=== PATIENT | female | born 1940 | race Caucasian/White ===

== ENCOUNTER 2017-10-07 15:06 | Inpatient (IN) ==
[2017-10-07] MEDS ORDERED: Naloxone 0.4 MG/ML INJ IVP PRN (21:48)
[2017-10-07] MEDS ORDERED: traMADol 50 MG TABLET PO PRN (21:51)
--- NOTE | 2017-10-07 22:36 | Internal Med History&Physical ---
Date of Encounter: 10/07/17 Time of Encounter: 22:33 Assessment and Plan (1) Lung mass Current visit: No Status: Acute 77/female Transfer from [facility]. Noted that chest x-ray was suggestive of of lung mass. CT chest: Right upper lobe lung mass 3.4 x 2.9x2.7 cm Patient is ex-smoker. Plan: Admit as inpatient. Nothing by mouth from midnight. We will get PT/INR tomorrow. Warfarin on hold. I Texted Dr Toure regarding this admission (2) UTI (urinary tract infection) Current visit: No Status: Acute Urine analysis is suggestive of a urinary tract infection. Presently on ceftriaxone 1 g every 24 hours. await for culture Qualifiers: Urinary tract infection type: site unspecified Hematuria presence: with hematuria Qualified Code(s): N39.0 - Urinary tract infection, site not specified; R31.9 - Hematuria, unspecified; R31.9 - Hematuria, unspecified (3) Bullous pemphigoid Current visit: No Status: Acute Presently on steroids. At this point I will hold her steroids (4) Atrial fibrillation Current visit: No Status: Chronic Patient is known to have atrial fibrillation At this point his rate control. We will rate control: Beta piper Anticoagulation: Used to be on warfarin/presently warfarin and hold Last INR at [facility] was 1.4 yesterday Qualifiers: Atrial fibrillation type: chronic Qualified Code(s): I48.2 - Chronic atrial fibrillation (5) COPD (chronic obstructive pulmonary disease) Current visit: No Status: Chronic Presently COPD is stable. Qualifiers: COPD type: emphysema Emphysema type: unspecified Qualified Code(s): J43.9 - Emphysema, unspecified (6) Hypertension Current visit: No Status: Chronic Patient blood pressure is within acceptable range. Qualifiers: Hypertension type: essential hypertension Qualified Code(s): I10 - Essential (primary) hypertension (7) DVT prophylaxis Current visit: Yes Status: Acute Patient was previously on Coumadin. Coumadin is on hold. SCD: Medical decision making: This patient has a moderate to severe risk of worsening in spite of being on appropriate medication due to the underlying chronic comorbid condition. Internal Medicine - H&P: HPI Chief complaint: UTI/Lung Mass Admitted From: Hospital to Hospital Transfer Plans for Post Hospital Care: Home History of present illness: Ms. Mcdonald is a 77 year old female whose primary care provider is Dr. Kris Malcoml. Patient was evaluated and admitted in the emergency department at [facility]. The reason why she was evaluated in the [facility] because she had a possibility of rhabdomyolysis secondary to the prolonged sitting in a chair. Patient was evaluated in the emergency room at [facility] and noted that she has not evidence of urinary tract infection. Patient was scheduled for a x-ray which showed possibility of a lung mass. Patient underwent CT scan of the chest and that showed that there is a right- sided lung mass. In view of the right-sided lung mass, persistent UTI it was decided to transfer patient from [facility] to this hospital for further evaluation. Reason for accepting transfer: Newly diagnosed lung mass/persistent UTI: Need further investigation/management. Family history: Noncontributory. Past Med Surg Social Fam HX - Past Medical History Medical history: atrial fibrillation, CHF, COPD, coronary artery disease, GERD, hyperlipidemia, hypertension, thyroid disease Psychiatric history: anxiety - Past Surgical History Surgical History: angioplasty/stent, herniorrhaphy, hysterectomy, other - Social History Smoking Status: Former smoker Smokeless Tobacco Status: No Alcohol use: occasionally Drug use: none - Family History Mother Living Status: Hx Family Cardiac Disorders: Yes (CHF) Internal Medicine - H&P: Meds Acetaminophen w/Cod 300-30 mg [Tylenol w/Codeine #3] 2 each PO Q4HR PRN [History] Albuterol Sulfate [Proair Hfa] 2 puff IH Q4H PRN 08/03/17 [History] Budesonide/Formoterol 160/4.5 [Symbicort 160/4.5] 2 puff IH BIDR 08/03/17 [ History] Calcium Citrate/Vitamin D3 [Calcium Citrate with D Tablet] 1 each PO BID [History] Famotidine [Pepcid] 40 mg PO BID 08/03/17 [History] Levothyroxine Sodium [Levoxyl] 50 mcg PO DAILY 08/03/17 [History] Lovastatin [Mevacor] 20 mg PO HS 08/03/17 [History] Metoprolol Tartrate [Lopressor] 50 mg PO BID 08/03/17 [History] Nystatin/Triamcinolone CRM [Mycolog] 1 appl TP BID 08/03/17 [History] PredniSONE [Timothy] 3 mg PO DAILY 08/03/17 [History] Tramadol HCl [Ultram] 50 mg PO QID PRN 08/03/17 [History] Trazodone HCl 50 mg PO HS PRN 08/03/17 [History] hydrOXYzine HCl [Hydroxyzine HCl] 50 - 100 mg PO Q6H PRN 08/03/17 [History] Ammonium Lactate [Amlactin] 1 appl TP DAILY 14 Days bottle 08/06/17 [Rx] Doxycycline Hyclate 100 mg PO BID #10 tablet 08/06/17 [Rx] Lactobacillus [Culturelle] 1 each PO BID #10 cap.sprink 08/06/17 [Rx] Magnesium Oxide [Mag-Ox] 400 mg PO BID #14 tablet 08/06/17 [Rx] Potassium Chloride [Klor-Con 10] 10 meq PO BID #60 tablet.er 08/06/17 [Rx] Torsemide [Demadex] 20 mg PO DAILY #30 tablet 08/06/17 [Rx] Warfarin [Coumadin] 2.5 mg PO DAILY #0 08/06/17 [Rx] 3 Allergy/AdvReac Type Severity Reaction Status Date / Time No Known Allergies Allergy Verified 07/30/17 13:44 All Systems PM: A 10-system review of systems was performed and is negative for pertinent findings except as documented above in the HPI. - Constitutional Constitutional: no chills, no fever(s), no night sweats - EENT Eyes: no change in vision, no discharge, no pain, no photophobia Ears: no ear discharge, no ear pain, no tinnitus Nose, mouth and throat: no dysphagia, no nasal discharge, no neck pain, no sore throat - Cardiovascular Cardiovascular ROS IM: no chest pain, no diaphoresis, no dyspnea, no lightheadedness, no palpitations, no syncope - Respiratory Respiratory: no cough, no dyspnea, no wheezing, no excessive phlegm production - Gastrointestinal Gastrointestinal: no abdominal pain, no diarrhea, no hematemesis, no hematochezia, no melena, no nausea, no vomiting - Genitourinary Genitourinary: no change in urinary stream, no dysuria, no flank pain, no hematuria - Musculoskeletal Musculoskeletal ROS IM: no numbness, no tingling - Integumentary Integumentary IM: no rash, no unusual bruising - Neurological Neurological ROS: no confusion, no convulsions, no focal weakness, no numbness, no tingling, no tremor(s) - Hematologic/Lymphatic Hematologic/Lymphatic: no easy bruising - Constitutional Vitals: Temp Pulse Resp BP Pulse Ox 98.7 F 82 16 133/88 95 10/07/17 18:17 10/07/17 18:17 10/07/17 18:17 10/07/17 18:17 10/07/17 18:17 General appearance: Present: A&O X 3, pleasant, no acute distress, answers questions appropriately - Head Head exam: Present: atraumatic, normocephalic - Eye Eye exam: Present: PERRL, conjuntiva pink, sclera anicteric Pupils: Present: PERRL - Neck Neck exam general surgery: Present: supple, trachea midline. Absent: lymphadenopathy - Respiratory Respiratory exam: Present: CTAB. Absent: accessory muscle use, rales, rhonchi, wheezes - Cardiovascular Cardiovascular exam: Present: RRR, +S1, +S2. Absent: diastolic murmur, gallop, rubs, systolic murmur - GI/Abdominal GI/Abdominal exam: Present: normal bowel sounds, soft, no peritoneal signs. Absent: distended, tenderness - Extremities Exam Extremities exam: Present: warm, radial pulses palpable and symmetrical. Absent : calf tenderness, cyanotic, pedal edema - Neurological Exam Neurological exam: Present: CN II-XII intact, oriented X3, no focal deficits. Absent: pronater drift, facial droop, speech deficit - Skin Skin exam: Present: dry, intact
[2017-10-07] MEDS: Budesonide/Formoterol 160/4.5 MDI IH SCH (23:50)
[2017-10-08 02:12] LABS: Basophils # 0.1 K/mcL (0.0-0.2); Eosinophils # 0.5 K/mcL (0.0-0.6); Eosinophils % 7.1 %; Hematocrit 35.6 % (35.3-44.9); Hemoglobin 10.8 g/dL (11.5-15.4); Immature Granulocytes % 0.3 % (0-4); Lymphocytes # 0.8 K/mcL (0.6-4.6); Lymphocytes % 11.9 %; Mean Corpuscular HGB Conc 30.3 g/dL (31.6-35.5); Mean Corpuscular Hemoglobin 30.1 pg (28.0-33.3); Mean Corpuscular Volume 99.2 fL (83.0-100.0); Mean Platelet Volume 9.2 fL (9.4-12.4); Monocytes # 0.8 K/mcL (0.0-1.3); Monocytes % 12.4 %; Neutrophils # 4.6 K/mcL (1.6-8.9); Platelet Count 230 K/mcL (140-400); Red Blood Count 3.59 M/mcL (3.82-4.97); Red Cell Distribution Width 13.7 % (11.5-14.5); Segmented Neutrophils % 67.3 %
[2017-10-08 02:28] LABS: INR 2.4; Prothrombin Time 26.8 Seconds (9.4-12.1)
[2017-10-08 02:31] LABS: Alanine Aminotransferase 6 Units/L (7-52); Albumin 2.4 g/dL (3.5-5.7); Albumin/Globulin Ratio 0.9 (1.1-2.2); Alkaline Phosphatase 66 Units/L (34-104); Aspartate Amino Transferase 14 Units/L (13-39); BUN/Creatinine Ratio 11 (6-26); Bilirubin,Total 0.4 mg/dL (0.3-1.0); Blood Urea Nitrogen 10 mg/dL (8-23); Calcium 7.9 mg/dL (8.6-10.3); Carbon Dioxide 31 mEq/L (23-29); Chloride 103 mEq/L (98-107); Globulin 2.6 g/dL (2.4-3.5); Glucose 100 mg/dL (70-105); Magnesium 1.4 mg/dL (1.6-2.6); Osmolality,Calculated 285 (280-300); Phosphorous 3.1 mg/dL (2.7-4.5); Potassium 3.9 mEq/L (3.5-5.1); Sodium 138 mEq/L (136-145); Triglycerides 104 mg/dL (< 150); eGFR For African Americans > 60 (> 60); eGFR For Non-African Americans > 60 (> 60)
[2017-10-08 02:32] LABS: Chol/HDL Ratio 2.4 (0-4.9); Cholesterol 81 mg/dL (< 200); HDL Cholesterol 34 mg/dL (40-59); LDL Cholesterol,Calculated 26 mg/dL (0-99)
--- NOTE | 2017-10-08 07:58 | Pulmonology Consult Note ---
Date of Encounter: 10/08/17 Time of Encounter: 07:30 Assessment and Plan (1) Lung mass Current Visit: No Status: Acute This is a high-risk patient with history of smoking and from the size of the tumor I have explained to the patient in needs to be biopsied and due to location it will be better to be done by interventional radiologist. I have explained this to the patient and also discussed with the primary team. Thank you for the consultation please call for any questions. (2) COPD (chronic obstructive pulmonary disease) Current Visit: No Status: Chronic Patient is on appropriate bronchodilator and I will add short-acting and clinically she does not looks to be in any distress and I do not feel there is COPD exacerbation. Advised patient to quit smoking and she can follow-up as outpatient if necessary. Qualifiers: COPD type: emphysema Emphysema type: unspecified Qualified Code(s): J43.9 - Emphysema, unspecified History of Present Illness Consult date: 10/08/17 Requesting physician: Merlin Diaz Reason for consult: lung mass Chief complaint: UTI/lung mass History of present illness: This is a pleasant 77-year-old female was admitted to the hospital for possibility of rhabdomyolysis secondary to prolonged sitting in a chair. Patient is poor historian and hard of hearing and she has history of smoking, but she is not able to specify for how long and how many cigarettes she smokes. Patient was found to have a lung mass and pulmonary was consulted. Patient stated she did have a biopsy on the right side which she is not able to give me any more details about that with her daughter was her lung or something else. Patient has some productive cough and wheezing when she denies any hemoptysis. Patient has history of UTI. Past Med Surg Social Fam HX - Past Medical History Medical history: atrial fibrillation, CHF, COPD, coronary artery disease, GERD, hyperlipidemia, hypertension, thyroid disease Psychiatric history: anxiety - Past Surgical History Surgical History: angioplasty/stent, herniorrhaphy, hysterectomy, other - Social History Smoking Status: Former smoker Smokeless Tobacco Status: No Alcohol use: occasionally Drug use: none - Family History Mother Living Status: Hx Family Cardiac Disorders: Yes (CHF) Medications and Allergies Acetaminophen w/Cod 300-30 mg [Tylenol w/Codeine #3] 2 each PO Q4HR PRN [History] Albuterol Sulfate [Proair Hfa] 2 puff IH Q4H PRN 08/03/17 [History] Budesonide/Formoterol 160/4.5 [Symbicort 160/4.5] 2 puff IH BIDR 08/03/17 [ History] Calcium Citrate/Vitamin D3 [Calcium Citrate with D Tablet] 1 each PO BID [History] Famotidine [Pepcid] 40 mg PO BID 08/03/17 [History] Levothyroxine Sodium [Levoxyl] 50 mcg PO DAILY 08/03/17 [History] Lovastatin [Mevacor] 20 mg PO HS 08/03/17 [History] Metoprolol Tartrate [Lopressor] 50 mg PO BID 08/03/17 [History] Nystatin/Triamcinolone CRM [Mycolog] 1 appl TP BID 08/03/17 [History] PredniSONE [Timothy] 3 mg PO DAILY 08/03/17 [History] Tramadol HCl [Ultram] 50 mg PO QID PRN 08/03/17 [History] Trazodone HCl 50 mg PO HS PRN 08/03/17 [History] hydrOXYzine HCl [Hydroxyzine HCl] 50 - 100 mg PO Q6H PRN 08/03/17 [History] Ammonium Lactate [Amlactin] 1 appl TP DAILY 14 Days bottle 08/06/17 [Rx] Doxycycline Hyclate 100 mg PO BID #10 tablet 08/06/17 [Rx] Lactobacillus [Culturelle] 1 each PO BID #10 cap.sprink 08/06/17 [Rx] Magnesium Oxide [Mag-Ox] 400 mg PO BID #14 tablet 08/06/17 [Rx] Potassium Chloride [Klor-Con 10] 10 meq PO BID #60 tablet.er 08/06/17 [Rx] Torsemide [Demadex] 20 mg PO DAILY #30 tablet 08/06/17 [Rx] Warfarin [Coumadin] 2.5 mg PO DAILY #0 08/06/17 [Rx] 3 Allergy/AdvReac Type Severity Reaction Status Date / Time No Known Allergies Allergy Verified 07/30/17 13:44 All Systems: The remainder of the systems were reviewed and are negative Physical Examination Vital Signs: Vital Signs, Last 4 Hours Temp Pulse Resp BP Pulse Ox 10/08/17 06:49 98.4 F 89 16 120/79 96 General appearance: no acute distress Eyes: nonicteric ENT: oropharynx moist Mallampati (class): 4 Neck: supple Effort: normal Auscultation: bilateral: diminished breath sounds Percussion: bilateral: not dull Cardiovascular: regular rate and rhythm Gastrointestinal: normoactive bowel sounds, non-distended Integumentary: cellulitis Extremities: edema normal mental status, non-focal exam mood appropriate Results - Laboratory Findings CBC and BMP: 10/08/17 02:01 10/08/17 02:01 PT/INR, D-dimer PT 26.8 Seconds (9.4-12.1) H D 10/08/17 02:01 Abnormal lab findings: Abnormal lab results RBC 3.59 M/mcL (3.82-4.97) L 10/08/17 02:01 Hgb 10.8 g/dL (11.5-15.4) L 10/08/17 02:01 MCHC 30.3 g/dL (31.6-35.5) L 10/08/17 02:01 MPV 9.2 fL (9.4-12.4) L 10/08/17 02:01 PT 26.8 Seconds (9.4-12.1) H D 10/08/17 02:01 Carbon Dioxide 31 mEq/L (23-29) H 10/08/17 02:01 Calcium 7.9 mg/dL (8.6-10.3) L 10/08/17 02:01 Magnesium 1.4 mg/dL (1.6-2.6) L 10/08/17 02:01 ALT 6 Units/L (7-52) L 10/08/17 02:01 Serum Total Protein 5.0 g/dL (6.4-8.9) L 10/08/17 02:01 Albumin 2.4 g/dL (3.5-5.7) L 10/08/17 02:01 Albumin/Globulin Ratio 0.9 (1.1-2.2) L 10/08/17 02:01 HDL Cholesterol 34 mg/dL (40-59) L 10/08/17 02:01 - Diagnostic Findings CT scan - chest: report reviewed, image reviewed - Clinical Findings Intake & Output: Intake & Output 10/07/17 10/07/17 10/08/17 15:59 23:59 07:59 Weight 110.4 kg Consult Discharge Plan - Plan Referrals: Kris Malcolm MD [Primary Care Provider] -
[2017-10-08] MEDS: VITAMIN D3 PO SCH ×2 (08:40→20:01)
[2017-10-08] MEDS: [UNRECOGNIZED DRUG - OTHER] PO SCH ×2 (08:40→20:01)
[2017-10-08] MEDS: Magnesium Oxide 400 MG TABLET PO SCH ×2 (08:40→19:58)
[2017-10-08] MEDS: CALCIUM CITRATE PO SCH ×2 (08:40→20:01)
[2017-10-08] MEDS: Ammonium Lactate 30 APPL/225 GM BOTTLE TP SCH (08:40)
[2017-10-08] MEDS: Torsemide 20 MG TABLET PO SCH (08:40)
[2017-10-08] MEDS: cefTRIAXone 1,000 MG in Water for inj. (sterile) 20 ML 10 ML IVP SCH (08:42)
[2017-10-08] MEDS ORDERED: Famotidine 20 MG TABLET PO SCH (09:00)
[2017-10-08] MEDS ORDERED: 0.9 % Sodium Chloride 250 ML ONE (09:05)
--- NOTE | 2017-10-08 09:23 | Internal Med Progress Note ---
Date of Encounter: 10/08/17 Time of Encounter: 09:20 - Assessment and plan (1) Lung mass Current Visit: No Status: Acute Assessment and plan: 77/female Transfer from [facility]. Noted that chest x-ray was suggestive of of lung mass. CT chest: Right upper lobe lung mass 3.4 x 2.9x2.7 cm Patient is ex-smoker. Plan: Warfarin on hold. Dr Toure recommended IR biopsy, I discussed with Dr robles , He wants to have INR< 1.5. will give 2 FFP, then recheck INR, (2) Venous stasis ulcer of right lower extremity Current Visit: No Status: Acute Assessment and plan: Bilateral loweer ext venous stenosis skin changes and the edema (3) Bullous pemphigoid Current Visit: No Status: Acute Assessment and plan: Patient stated that she has long history of bullous pemphigoid, has been stable no lesions. (4) Atrial fibrillation Current Visit: No Status: Chronic Assessment and plan: HR is controlled, INR 2.4 today Qualifiers: Atrial fibrillation type: chronic Qualified Code(s): I48.2 - Chronic atrial fibrillation (5) COPD (chronic obstructive pulmonary disease) Current Visit: No Status: Chronic Assessment and plan: Chronic hypoxic respiratory failure from COPD , COPD has been stable, no wheezing. She was on 2 L nasal cannula at home Qualifiers: COPD type: emphysema Emphysema type: unspecified Qualified Code(s): J43.9 - Emphysema, unspecified (6) UTI (urinary tract infection) Current Visit: No Status: Acute Assessment and plan: Continue ceftriaxone Qualifiers: Urinary tract infection type: site unspecified Hematuria presence: with hematuria Qualified Code(s): N39.0 - Urinary tract infection, site not specified; R31.9 - Hematuria, unspecified; R31.9 - Hematuria, unspecified (7) Weakness Current Visit: No Status: Acute Assessment and plan: Generalized weakness consult PTOT may need a rehabilitation - Time Spent With Patient 25 - 35 minutes - Subjective Interval history: Ms. Mcdonald is a 77 year old female whose primary care provider is Dr. Kris Malcolm. Patient was evaluated and admitted in the emergency department at [facility]. The reason why she was evaluated in the [facility] because she had a possibility of rhabdomyolysis secondary to the prolonged sitting in a chair. Patient was evaluated in the emergency room at [facility] and noted that she has not evidence of urinary tract infection. Patient was scheduled for a x-ray which showed possibility of a lung mass. Patient underwent CT scan of the chest and that showed that there is a right- sided lung mass. In view of the right-sided lung mass, persistent UTI it was decided to transfer patient from [facility] to this hospital for further evaluation. Reason for accepting transfer: Newly diagnosed lung mass/persistent UTI: Need further investigation/management. Patient is doing okay, on 2 L nasal cannula. Denies wheezing shortness of breath, she has atrial fibrillation on chronic Coumadin. INR is elevated 2.4. Discussed with her to give FFP and then a PT/INR, patient did agree. - Constitutional Vitals: Temp Pulse Resp BP Pulse Ox 98.4 F 89 16 120/79 96 10/08/17 06:49 10/08/17 06:49 10/08/17 06:49 10/08/17 06:49 10/08/17 06:49 General appearance: Present: A&O X 3, pleasant, no acute distress, answers questions appropriately Exam: CONSTITUTIONAL: patient appears as an age appropriate female in no acute distress. EYES Clear sclerae, bilateral pupils are equal, reactive to light. EMOI. RESPIRATORY: No accessory muscle use, bilateral decreased BS to auscultation, no wheezing, no crackles/rales. CARDIOVASCULAR: Regular heart rate, normal S1 and S2, no murmurs GASTROINTESTINAL: bowel sounds present, soft, no tenderness. MUSCULOSKELETAL: Joints in normal range of motion, no clubbing, no edema, no cyanosis. Bilateral peripheral pulses 2+. NEUROLOGIC: CN II to XII are grossly intact, no focal neurological deficit. Internal Medicine: Result - Labs CBC & Chem 7: 10/08/17 02:01 10/08/17 02:01 Labs: Short CBC 10/08/17 Range/Units 02:01 WBC 6.8 (4.3-11.1) K/mcL Hgb 10.8 L (11.5-15.4) g/dL Hct 35.6 (35.3-44.9) % Plt Count 230 (140-400) K/mcL Neutrophils # 4.6 (1.6-8.9) K/mcL BMP 10/08/17 02:01 Sodium 138 Potassium 3.9 Chloride 103 Carbon Dioxide 31 H BUN 10 Creatinine 0.88 Glucose 100 Calcium 7.9 L Liver Function 10/08/17 Range/Units 02:01 Total Bilirubin 0.4 (0.3-1.0) mg/dL AST 14 (13-39) Units/L ALT 6 L (7-52) Units/L Alkaline Phosphatase 66 (34-104) Units/L Albumin 2.4 L (3.5-5.7) g/dL - ABG Interpretation ABG results: PT/INR, D-dimer PT 26.8 Seconds (9.4-12.1) H D 10/08/17 02:01 Consult Discharge Plan - Plan Referrals: Kris Malcolm MD [Primary Care Provider] -
[2017-10-08] MEDS: Ipratropium/Albuterol Neb 3 ML IH SCH ×3 (11:22→21:49)
[2017-10-08] MEDS: Budesonide/Formoterol 160/4.5 MDI IH SCH ×2 (11:22→21:49)
[2017-10-08 11:43] LABS: INR 1.9; Prothrombin Time 20.5 Seconds (9.4-12.1)
[2017-10-08] MEDS: Famotidine 20 MG TABLET PO SCH (19:58)
[2017-10-08] MEDS: *HR* Acetaminophen w/Cod 300-30 mg 1 TAB TABLET PO PRN (19:58)
[2017-10-09 02:29] LABS: Basophils # 0.1 K/mcL (0.0-0.2); Basophils % 1.1 %; Eosinophils # 0.6 K/mcL (0.0-0.6); Eosinophils % 8.7 %; Hematocrit 32.9 % (35.3-44.9); Immature Granulocytes % 0.2 % (0-4); Lymphocytes # 0.8 K/mcL (0.6-4.6); Lymphocytes % 12.3 %; Mean Corpuscular HGB Conc 30.4 g/dL (31.6-35.5); Mean Corpuscular Hemoglobin 30.4 pg (28.0-33.3); Mean Platelet Volume 9.3 fL (9.4-12.4); Monocytes # 0.8 K/mcL (0.0-1.3); Monocytes % 12.7 %; Neutrophils # 4.2 K/mcL (1.6-8.9); Platelet Count 234 K/mcL (140-400); Red Blood Count 3.29 M/mcL (3.82-4.97); Red Cell Distribution Width 13.9 % (11.5-14.5)
[2017-10-09] MEDS: Ipratropium/Albuterol Neb 3 ML IH SCH ×4 (04:28→22:12)
[2017-10-09] MEDS ORDERED: Magnesium Sulfate 2 GM in D5% in Water 100 ML IVPB ONE (07:51)
[2017-10-09] MEDS: cefTRIAXone 1,000 MG in Water for inj. (sterile) 20 ML 10 ML IVP SCH (09:29)
[2017-10-09] MEDS: Magnesium Oxide 400 MG TABLET PO SCH ×2 (09:29→21:39)
[2017-10-09] MEDS: VITAMIN D3 PO SCH ×2 (09:30→21:40)
[2017-10-09] MEDS: Torsemide 20 MG TABLET PO SCH (09:30)
[2017-10-09] MEDS: [UNRECOGNIZED DRUG - OTHER] PO SCH ×2 (09:30→21:40)
[2017-10-09] MEDS: Famotidine 20 MG TABLET PO SCH ×2 (09:30→21:39)
[2017-10-09] MEDS: CALCIUM CITRATE PO SCH ×2 (09:30→21:40)
[2017-10-09] MEDS: Ammonium Lactate 30 APPL/225 GM BOTTLE TP SCH (09:30)
[2017-10-09] MEDS: *HR* Acetaminophen w/Cod 300-30 mg 1 TAB TABLET PO PRN (09:33)
--- NOTE | 2017-10-09 09:51 | Internal Med Progress Note ---
Date of Encounter: 10/09/17 Time of Encounter: 09:49 - Assessment and plan (1) Lung mass Current Visit: No Status: Acute Assessment and plan: 77/female Transfer from [facility]. Noted that chest x-ray was suggestive of of lung mass. CT chest: Right upper lobe lung mass 3.4 x 2.9x2.7 cm Patient is ex-smoker. Plan: Warfarin on hold. Dr Toure recommended IR biopsy, IR was unable to do biopsy on 10/08, plan do biopsy on Wednesday Monitor INR daily (2) Venous stasis ulcer of right lower extremity Current Visit: No Status: Acute Assessment and plan: Bilateral loweer ext venous stenosis skin changes and the edema (3) Bullous pemphigoid Current Visit: No Status: Acute Assessment and plan: Patient stated that she has long history of bullous pemphigoid, has been stable no lesions. (4) Atrial fibrillation Current Visit: No Status: Chronic Assessment and plan: HR is controlled, INR 2.4 today Qualifiers: Atrial fibrillation type: chronic Qualified Code(s): I48.2 - Chronic atrial fibrillation (5) COPD (chronic obstructive pulmonary disease) Current Visit: No Status: Chronic Assessment and plan: Chronic hypoxic respiratory failure from COPD , COPD has been stable, no wheezing. She was on 2 L nasal cannula at home Qualifiers: COPD type: emphysema Emphysema type: unspecified Qualified Code(s): J43.9 - Emphysema, unspecified (6) UTI (urinary tract infection) Current Visit: No Status: Acute Assessment and plan: Continue ceftriaxone Qualifiers: Urinary tract infection type: site unspecified Hematuria presence: with hematuria Qualified Code(s): N39.0 - Urinary tract infection, site not specified; R31.9 - Hematuria, unspecified; R31.9 - Hematuria, unspecified (7) Weakness Current Visit: No Status: Acute Assessment and plan: Generalized weakness consult PTOT may need a rehabilitation (8) Morbid obesity with BMI of 40.0-44.9, adult Current Visit: Yes Status: Acute Assessment and plan: life style modification - Subjective Interval history: Ms. Mcdonald is a 77 year old female whose primary care provider is Dr. Kris Malcolm. Patient was evaluated and admitted in the emergency department at [facility]. The reason why she was evaluated in the [facility] because she had a possibility of rhabdomyolysis secondary to the prolonged sitting in a chair. Patient was evaluated in the emergency room at [facility] and noted that she has not evidence of urinary tract infection. Patient was scheduled for a x-ray which showed possibility of a lung mass. Patient underwent CT scan of the chest and that showed that there is a right- sided lung mass. In view of the right-sided lung mass, persistent UTI it was decided to transfer patient from [facility] to this hospital for further evaluation. Reason for accepting transfer: Newly diagnosed lung mass/persistent UTI: Need further investigation/management. Patient is doing okay, on 2 L nasal cannula. Denies wheezing shortness of breath, she has atrial fibrillation on chronic Coumadin. IR was unable ot do biopsy on 10/08, will plan to do biopsy on Wednesday ON no event, stable - Constitutional Vitals: Temp Pulse Resp BP Pulse Ox 98 F 66 15 119/72 97 10/09/17 07:57 10/09/17 07:57 10/09/17 07:57 10/09/17 07:57 10/09/17 07:57 General appearance: Present: A&O X 3, morbidly obese, pleasant, no acute distress, answers questions appropriately Exam: CONSTITUTIONAL: patient appears as an age appropriate female in no acute distress. EYES Clear sclerae, bilateral pupils are equal, reactive to light. EMOI. RESPIRATORY: No accessory muscle use, bilateral clear to auscultation, no wheezing, no crackles/rales. CARDIOVASCULAR: Regular heart rate, normal S1 and S2, no murmurs GASTROINTESTINAL: bowel sounds present, soft, no tenderness. MUSCULOSKELETAL: Joints in normal range of motion, no clubbing, no edema, no cyanosis. Bilateral peripheral pulses 2+. NEUROLOGIC: CN II to XII are grossly intact, no focal neurological deficit. Internal Medicine: Result - Labs CBC & Chem 7: 10/09/17 01:59 10/08/17 02:01 Labs: Short CBC 10/09/17 Range/Units 01:59 WBC 6.5 (4.3-11.1) K/mcL Hgb 10.0 L (11.5-15.4) g/dL Hct 32.9 L (35.3-44.9) % Plt Count 234 (140-400) K/mcL Neutrophils # 4.2 (1.6-8.9) K/mcL - ABG Interpretation ABG results: PT/INR, D-dimer PT 20.5 Seconds (9.4-12.1) H 10/08/17 11:01 Consult Discharge Plan - Plan Referrals: Kris Malcolm MD [Primary Care Provider] -
[2017-10-09] MEDS: Budesonide/Formoterol 160/4.5 MDI IH SCH ×2 (10:26→22:12)
[2017-10-10 01:43] LABS: INR 1.2; Prothrombin Time 12.9 Seconds (9.4-12.1)
[2017-10-10] MEDS: Ipratropium/Albuterol Neb 3 ML IH SCH ×4 (04:41→22:07)
[2017-10-10] MEDS: Ammonium Lactate 30 APPL/225 GM BOTTLE TP SCH (09:39)
[2017-10-10] MEDS: Magnesium Oxide 400 MG TABLET PO SCH ×2 (09:40→21:41)
[2017-10-10] MEDS: CALCIUM CITRATE PO SCH ×2 (09:40→21:41)
[2017-10-10] MEDS: [UNRECOGNIZED DRUG - OTHER] PO SCH ×2 (09:40→21:41)
[2017-10-10] MEDS: VITAMIN D3 PO SCH ×2 (09:40→21:41)
[2017-10-10] MEDS: Torsemide 20 MG TABLET PO SCH (09:40)
[2017-10-10] MEDS: Famotidine 20 MG TABLET PO SCH ×2 (09:40→21:41)
[2017-10-10] MEDS: cefTRIAXone 1,000 MG in Water for inj. (sterile) 20 ML 10 ML IVP SCH (09:40)
[2017-10-10] MEDS: Budesonide/Formoterol 160/4.5 MDI IH SCH ×2 (10:22→22:07)
--- NOTE | 2017-10-10 12:47 | Internal Med Progress Note ---
Date of Encounter: 10/10/17 Time of Encounter: 12:40 - Assessment and plan (1) Lung mass Current Visit: No Status: Acute Assessment and plan: 77/female Transfer from [facility]. Noted that chest x-ray was suggestive of of lung mass. CT chest: Right upper lobe lung mass 3.4 x 2.9x2.7 cm Patient is ex-smoker. Plan: Warfarin on hold. Dr Toure recommended IR biopsy, IR was unable to do biopsy on 10/08, plan do biopsy on Wednesday Monitor INR daily (2) Venous stasis ulcer of right lower extremity Current Visit: No Status: Acute Assessment and plan: Bilateral loweer ext venous stenosis skin changes and the edema (3) Bullous pemphigoid Current Visit: No Status: Acute Assessment and plan: Patient stated that she has long history of bullous pemphigoid, has been stable no lesions. (4) Atrial fibrillation Current Visit: No Status: Chronic Assessment and plan: HR is controlled, INR 1.2. need levenox bridge Qualifiers: Atrial fibrillation type: chronic Qualified Code(s): I48.2 - Chronic atrial fibrillation (5) COPD (chronic obstructive pulmonary disease) Current Visit: No Status: Chronic Assessment and plan: Chronic hypoxic respiratory failure from COPD , COPD has been stable, no wheezing. She was on 2 L nasal cannula at home Qualifiers: COPD type: emphysema Emphysema type: unspecified Qualified Code(s): J43.9 - Emphysema, unspecified (6) UTI (urinary tract infection) Current Visit: No Status: Acute Assessment and plan: Continue ceftriaxone Qualifiers: Urinary tract infection type: site unspecified Hematuria presence: with hematuria Qualified Code(s): N39.0 - Urinary tract infection, site not specified; R31.9 - Hematuria, unspecified; R31.9 - Hematuria, unspecified (7) Weakness Current Visit: No Status: Acute Assessment and plan: Generalized weakness consult PTOT may need a rehabilitation (8) Morbid obesity with BMI of 40.0-44.9, adult Current Visit: Yes Status: Acute Assessment and plan: life style modification - Time Spent With Patient 25 - 35 minutes - Subjective Interval history: Ms. Mcdonald is a 77 year old female whose primary care provider is Dr. Kris Malcolm. Patient was evaluated and admitted in the emergency department at [facility]. The reason why she was evaluated in the [facility] because she had a possibility of rhabdomyolysis secondary to the prolonged sitting in a chair. Patient was evaluated in the emergency room at [facility] and noted that she has not evidence of urinary tract infection. Patient was scheduled for a x-ray which showed possibility of a lung mass. Patient underwent CT scan of the chest and that showed that there is a right- sided lung mass. In view of the right-sided lung mass, persistent UTI it was decided to transfer patient from [facility] to this hospital for further evaluation. Reason for accepting transfer: Newly diagnosed lung mass/persistent UTI: Need further investigation/management. Patient is doing okay, on 2 L nasal cannula. Denies wheezing shortness of breath, she has atrial fibrillation on chronic Coumadin. IR was unable ot do biopsy on 10/08, will plan to do biopsy on Wednesday ON no event, stable, she c/o some abdominal cramping, no diarrhea, abdomen is soft, she has BM daily - Constitutional Vitals: Temp Pulse Resp BP Pulse Ox 98.1 F 71 18 115/76 93 10/10/17 11:13 10/10/17 11:13 10/10/17 11:13 10/10/17 11:13 10/10/17 11:13 General appearance: Present: A&O X 3, morbidly obese, pleasant, no acute distress, answers questions appropriately Exam: CONSTITUTIONAL: patient appears as an age appropriate female in no acute distress. EYES Clear sclerae, bilateral pupils are equal, reactive to light. EMOI. RESPIRATORY: No accessory muscle use, bilateral clear to auscultation, no wheezing, no crackles/rales. CARDIOVASCULAR: Regular heart rate, normal S1 and S2, no murmurs GASTROINTESTINAL: bowel sounds present, soft, no tenderness. MUSCULOSKELETAL: Joints in normal range of motion, no clubbing, ++ edema, no cyanosis. Bilateral peripheral pulses 2+. NEUROLOGIC: CN II to XII are grossly intact, no focal neurological deficit. Internal Medicine: Result - Labs CBC & Chem 7: 10/09/17 01:59 10/08/17 02:01 - ABG Interpretation ABG results: PT/INR, D-dimer PT 12.9 Seconds (9.4-12.1) H 10/10/17 00:59 Consult Discharge Plan - Plan Referrals: Kris Malcolm MD [Primary Care Provider] -
[2017-10-10] MEDS: *HR* Acetaminophen w/Cod 300-30 mg 1 TAB TABLET PO PRN (21:48)
[2017-10-11] MEDS: Ipratropium/Albuterol Neb 3 ML IH SCH ×5 (04:32→21:33)
[2017-10-11 04:54] LABS: INR 1.2; Prothrombin Time 12.9 Seconds (9.4-12.1)
[2017-10-11] MEDS: Ammonium Lactate 30 APPL/225 GM BOTTLE TP SCH (10:33)
[2017-10-11] MEDS: Torsemide 20 MG TABLET PO SCH (10:33)
[2017-10-11] MEDS: Magnesium Oxide 400 MG TABLET PO SCH ×2 (10:34→20:42)
[2017-10-11] MEDS: [UNRECOGNIZED DRUG - OTHER] PO SCH ×2 (10:34→20:43)
[2017-10-11] MEDS: CALCIUM CITRATE PO SCH ×2 (10:34→20:43)
[2017-10-11] MEDS: VITAMIN D3 PO SCH ×2 (10:34→20:43)
[2017-10-11] MEDS: Famotidine 20 MG TABLET PO SCH ×2 (10:36→20:42)
[2017-10-11] MEDS: cefTRIAXone 1,000 MG in Water for inj. (sterile) 20 ML 10 ML IVP SCH (10:36)
[2017-10-11] MEDS: Budesonide/Formoterol 160/4.5 MDI IH SCH ×2 (11:19→21:33)
[2017-10-11] MEDS ORDERED: *HR* FentaNYL (PF) 100 MCG/2 ML VIAL IVP ONE (14:44)
[2017-10-11] MEDS ORDERED: *HR* Midazolam HCl 2 MG/2 ML VIAL IVP ONE (14:44)
--- NOTE | 2017-10-11 14:45 | Pre-Sedation Evaluation ---
Pre-sedation evaluation - Pre-sedation checklist Date of procedure: 10/11/17 Procedure: lung bx Recent Vitals: Last Vital Signs Temp 97.6 F 10/11/17 11:40 Pulse 73 10/11/17 11:40 Resp 17 10/11/17 11:40 BP 117/76 10/11/17 11:40 Pulse Ox 99 10/11/17 11:40 Airway Assessment: Patient can open mouth completely, TMJ function normal, Micrognathia (under-bite, receding chin) absent, Neck with adequate range of motion ASA Classification *see protocol: CLASS II-Mild systemic disease Plan of Care: Pt appropriate candidate for procedure/moderate/conscious sedation , Risks/benefits of procedure/sedation discussed w/ patient/family, If not NPO; Risk of intake outweiged by necessity to perform procedure
[2017-10-11] MEDS ORDERED: 0.9 % Sodium Chloride 500 ML ONE (14:57)
[2017-10-11] MEDS ORDERED: traZODone 50 MG TABLET PO PRN (16:55)
--- NOTE | 2017-10-11 16:55 | Internal Med Progress Note ---
Date of Encounter: 10/11/17 Time of Encounter: 16:53 - Assessment and plan (1) Lung mass Current Visit: No Status: Acute Assessment and plan: 77/female Transfer from [facility]. Noted that chest x-ray was suggestive of of lung mass. CT chest: Right upper lobe lung mass 3.4 x 2.9x2.7 cm Patient is ex-smoker. Plan: Dr Toure recommended IR biopsy, IR was unable to do biopsy on 10/08, plan do biopsy on 10/11 start xarelto tomorrow after biopsy (2) Venous stasis ulcer of right lower extremity Current Visit: No Status: Acute Assessment and plan: Bilateral loweer ext venous stenosis skin changes and the edema (3) Bullous pemphigoid Current Visit: No Status: Acute Assessment and plan: Patient stated that she has long history of bullous pemphigoid, has been stable no lesions. continue home prednisone 3 mg daily (4) Atrial fibrillation Current Visit: No Status: Chronic Assessment and plan: HR is controlled, INR 1.2. resume home xarelto tomorrow Qualifiers: Atrial fibrillation type: chronic Qualified Code(s): I48.2 - Chronic atrial fibrillation (5) COPD (chronic obstructive pulmonary disease) Current Visit: No Status: Chronic Assessment and plan: Chronic hypoxic respiratory failure from COPD , COPD has been stable, no wheezing. She was on 2 L nasal cannula at home Qualifiers: COPD type: emphysema Emphysema type: unspecified Qualified Code(s): J43.9 - Emphysema, unspecified (6) UTI (urinary tract infection) Current Visit: No Status: Acute Assessment and plan: Continue ceftriaxone Qualifiers: Urinary tract infection type: site unspecified Hematuria presence: with hematuria Qualified Code(s): N39.0 - Urinary tract infection, site not specified; R31.9 - Hematuria, unspecified; R31.9 - Hematuria, unspecified (7) Weakness Current Visit: No Status: Acute Assessment and plan: Generalized weakness consult PTOT may need a rehabilitation (8) Morbid obesity with BMI of 40.0-44.9, adult Current Visit: Yes Status: Acute Assessment and plan: life style modification - Subjective Interval history: Ms. Mcdonald is a 77 year old female whose primary care provider is Dr. Kris Malcolm. Patient was evaluated and admitted in the emergency department at [facility]. The reason why she was evaluated in the [facility] because she had a possibility of rhabdomyolysis secondary to the prolonged sitting in a chair. Patient was evaluated in the emergency room at [facility] and noted that she has not evidence of urinary tract infection. Patient was scheduled for a x-ray which showed possibility of a lung mass. Patient underwent CT scan of the chest and that showed that there is a right- sided lung mass. In view of the right-sided lung mass, persistent UTI it was decided to transfer patient from [facility] to this hospital for further evaluation. Reason for accepting transfer: Newly diagnosed lung mass/persistent UTI: Need further investigation/management. Patient is doing okay, on 2 L nasal cannula. Denies wheezing shortness of breath, she has atrial fibrillation on chronic Coumadin. IR was unable ot do biopsy on 10/08, will plan to do biopsy on Wednesday ON no event, stable, she c/o some abdominal cramping, no diarrhea, abdomen is soft, she has BM daily She is NPO for biopsy, I called IR, they don't know the time yet her INR is 1.2 will giv elovenox bridge start coumadin tonight - Constitutional Vitals: Temp Pulse Resp BP Pulse Ox 97.7 F 74 18 114/80 99 10/11/17 15:56 10/11/17 15:56 10/11/17 15:56 10/11/17 15:56 10/11/17 15:56 General appearance: Present: A&O X 3, morbidly obese, pleasant, no acute distress, answers questions appropriately Exam: CONSTITUTIONAL: patient appears as an age appropriate female in no acute distress. EYES Clear sclerae, bilateral pupils are equal, reactive to light. EMOI. RESPIRATORY: No accessory muscle use, bilateral clear to auscultation, no wheezing, no crackles/rales. CARDIOVASCULAR: Regular heart rate, normal S1 and S2, no murmurs GASTROINTESTINAL: bowel sounds present, soft, no tenderness. MUSCULOSKELETAL: Joints in normal range of motion, no clubbing, no edema, no cyanosis. Bilateral peripheral pulses 2+. NEUROLOGIC: CN II to XII are grossly intact, no focal neurological deficit. Internal Medicine: Result - Labs CBC & Chem 7: 10/09/17 01:59 10/08/17 02:01 - ABG Interpretation ABG results: PT/INR, D-dimer PT 12.9 Seconds (9.4-12.1) H 10/11/17 03:26 Consult Discharge Plan - Plan Referrals: Kris Malcolm MD [Primary Care Provider] -
[2017-10-11] MEDS: predniSONE 1 MG TABLET PO SCH (18:32)
[2017-10-11] MEDS: Tiotropium 18 MCG inhalation IH SCH (21:10)
[2017-10-11] MEDS: *HR* Acetaminophen w/Cod 300-30 mg 1 TAB TABLET PO PRN (22:04)
[2017-10-12] MEDS: Ipratropium/Albuterol Neb 3 ML IH SCH ×4 (04:41→22:44)
[2017-10-12 06:26] LABS: INR 1.2; Prothrombin Time 12.5 Seconds (9.4-12.1)
[2017-10-12] MEDS: Tiotropium 18 MCG inhalation IH SCH (07:55)
[2017-10-12] MEDS: Famotidine 20 MG TABLET PO SCH ×2 (08:29→21:15)
[2017-10-12] MEDS: predniSONE 1 MG TABLET PO SCH (08:30)
[2017-10-12] MEDS: Magnesium Oxide 400 MG TABLET PO SCH ×2 (08:30→21:16)
[2017-10-12] MEDS: *HR* Rivaroxaban 10 MG TABLET PO SCH (08:30)
[2017-10-12] MEDS: cefTRIAXone 1,000 MG in Water for inj. (sterile) 20 ML 10 ML IVP SCH (08:30)
[2017-10-12] MEDS: CALCIUM CITRATE PO SCH ×2 (08:31→21:17)
[2017-10-12] MEDS: VITAMIN D3 PO SCH ×2 (08:31→21:17)
[2017-10-12] MEDS: [UNRECOGNIZED DRUG - OTHER] PO SCH ×2 (08:31→21:17)
[2017-10-12] MEDS: Torsemide 20 MG TABLET PO SCH (08:32)
[2017-10-12] MEDS: *HR* Acetaminophen w/Cod 300-30 mg 1 TAB TABLET PO PRN ×2 (08:44→21:16)
[2017-10-12] MEDS ORDERED: GuaiFENesin/Codeine Oral Soln 5 ML UDC PO PRN (10:04)
--- NOTE | 2017-10-12 10:06 | Internal Med Progress Note ---
Date of Encounter: 10/12/17 Time of Encounter: 10:06 - Assessment and plan (1) Chronic respiratory failure with hypoxia Current Visit: Yes Status: Chronic Assessment and plan: Continue oxygen as ordered. (2) Lung mass Current Visit: No Status: Acute Assessment and plan: Biopsy pending. (3) Pneumothorax after biopsy Current Visit: Yes Status: Acute Assessment and plan: Recheck CXR in AM. Asymptomatic. (4) Venous stasis ulcer of right lower extremity Current Visit: No Status: Acute Assessment and plan: Bilateral loweer ext venous stenosis skin changes. Continue supportive care. (5) Atrial fibrillation Current Visit: No Status: Chronic Assessment and plan: HR is controlled Resume Xarelto Qualifiers: Atrial fibrillation type: chronic Qualified Code(s): I48.2 - Chronic atrial fibrillation (6) Hypertension Current Visit: No Status: Chronic Assessment and plan: Chronic issue Qualifiers: Hypertension type: essential hypertension Qualified Code(s): I10 - Essential (primary) hypertension (7) Bullous pemphigoid Current Visit: No Status: Chronic Assessment and plan: Chronic issue (8) Morbid obesity with BMI of 40.0-44.9, adult Current Visit: Yes Status: Chronic Assessment and plan: Chronic issue - Subjective Interval history: Ms Mcdonald is currently admitted for respiratory issues and lung mass. She is s/p biopsy. She remains moderate to high risk due to potential for worsening clinical status. Ms Mcdonald is having a lot of cough and congestion. No fever. No new issues. No GI issues. Feels very weak overall. - Constitutional Vitals: Temp Pulse Resp BP Pulse Ox 97.4 F L 79 16 113/75 95 10/12/17 08:00 10/12/17 08:00 10/12/17 08:00 10/12/17 08:00 10/12/17 08:00 General appearance: Present: A&O X 3, morbidly obese, pleasant, answers questions appropriately - Head Head exam: Present: normocephalic - Eye Eye exam: Present: EOMI, conjuntiva pink - ENT ENT exam: Present: mucous membranes dry - Respiratory Respiratory exam: Present: rhonchi. Absent: rales, wheezes - Cardiovascular Cardiovascular exam: Present: distant heart sounds, RRR - GI/Abdominal GI/Abdominal exam: Present: soft. Absent: tenderness - Extremities Exam Extremities exam: Present: warm. Absent: tenderness - Neurological Exam Neurological exam: Present: alert, oriented X3 - Skin Skin exam: Present: dry, warm Internal Medicine: Result - Labs CBC & Chem 7: 10/09/17 01:59 10/08/17 02:01 - ABG Interpretation ABG results: PT/INR, D-dimer PT 12.5 Seconds (9.4-12.1) H 10/12/17 05:59 - Impressions Impressions Lung Biopsy CT 10/11/17 00:00 IMPRESSION: CT-guided core biopsy of a right lung mass performed. D/ / 10/12/2017 07:33:16 Kulwant Granda MD / rody Interpreting Provider: Kulwant Granda MD Chest X-Ray 10/11/17 16:15 IMPRESSION: Tiny residual right apical pneumothorax after right lung biopsy. Small effusions and basilar atelectasis. D/ / Tho Silva / Tho Silva Interpreting Provider: Tho Silva Chest X-Ray 10/12/17 04:00 IMPRESSION: 1. Stable tiny right apical pneumothorax. 2. Re-demonstration of the patient's known right lung mass. 3. Small bilateral pleural effusions. D/ / 10/12/2017 08:01:53 Gilson Wren MD / Marissa Yancey Interpreting Provider: Gilson Wren MD Consult Discharge Plan - Plan Referrals: Kris Malcolm MD [Primary Care Provider] -
[2017-10-12] MEDS: Ammonium Lactate 30 APPL/225 GM BOTTLE TP SCH (10:55)
[2017-10-12] MEDS: Budesonide/Formoterol 160/4.5 MDI IH SCH ×2 (11:33→22:44)
[2017-10-13] MEDS: Ipratropium/Albuterol Neb 3 ML IH SCH ×4 (03:57→22:46)
[2017-10-13 06:13] LABS: Hematocrit 35.1 % (35.3-44.9); Hemoglobin 10.5 g/dL (11.5-15.4); Mean Corpuscular HGB Conc 29.9 g/dL (31.6-35.5); Mean Corpuscular Hemoglobin 29.8 pg (28.0-33.3); Mean Corpuscular Volume 99.7 fL (83.0-100.0); Mean Platelet Volume 9.2 fL (9.4-12.4); Platelet Count 268 K/mcL (140-400); Red Blood Count 3.52 M/mcL (3.82-4.97); Red Cell Distribution Width 13.9 % (11.5-14.5)
[2017-10-13 06:20] LABS: INR 1.4; Prothrombin Time 15.2 Seconds (9.4-12.1)
[2017-10-13 06:31] LABS: BUN/Creatinine Ratio 15 (6-26); Blood Urea Nitrogen 12 mg/dL (8-23); Calcium 8.5 mg/dL (8.6-10.3); Carbon Dioxide 32 mEq/L (23-29); Chloride 100 mEq/L (98-107); Glucose 107 mg/dL (70-105); Magnesium 1.8 mg/dL (1.6-2.6); Osmolality,Calculated 284 (280-300); Potassium 3.8 mEq/L (3.5-5.1); Sodium 137 mEq/L (136-145); eGFR For African Americans > 60 (> 60); eGFR For Non-African Americans > 60 (> 60)
[2017-10-13] MEDS: predniSONE 1 MG TABLET PO SCH (09:43)
[2017-10-13] MEDS: Magnesium Oxide 400 MG TABLET PO SCH ×2 (09:44→22:02)
[2017-10-13] MEDS: VITAMIN D3 PO SCH ×2 (09:44→22:03)
[2017-10-13] MEDS: [UNRECOGNIZED DRUG - OTHER] PO SCH ×2 (09:44→22:03)
[2017-10-13] MEDS: CALCIUM CITRATE PO SCH ×2 (09:44→22:03)
[2017-10-13] MEDS: Famotidine 20 MG TABLET PO SCH ×2 (09:44→22:02)
[2017-10-13] MEDS: cefTRIAXone 1,000 MG in Water for inj. (sterile) 20 ML 10 ML IVP SCH (09:45)
[2017-10-13] MEDS: Ammonium Lactate 30 APPL/225 GM BOTTLE TP SCH (09:45)
[2017-10-13] MEDS: *HR* Rivaroxaban 10 MG TABLET PO SCH (09:45)
[2017-10-13] MEDS: Torsemide 20 MG TABLET PO SCH (09:45)
[2017-10-13] MEDS: Tiotropium 18 MCG inhalation IH SCH (10:54)
[2017-10-13] MEDS: Budesonide/Formoterol 160/4.5 MDI IH SCH ×2 (10:54→22:47)
--- NOTE | 2017-10-13 14:57 | Oncology Inp Consult Note ---
<Myrna Card - Last Filed: 10/13/17 16:50> Date of Encounter: 10/13/17 Time of Encounter: 13:00 Assessment and Plan (1) Non-small cell lung cancer (NSCLC) Status: Acute Assessment and plan: Dr. 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 According to CT chest imaging she has no other sign of metastatic disease at this time, however, per NCCN guidelines she will need further staging workup with PET scan and MRI of the brain. Further treatment options to be discussed on outpatient basis pending further staging workup and continued monitoring of her functional status. I encouraged participation with therapy and continued activity as tolerated. I will arrange for the above imaging tests likely for next week along with a follow up with Dr. Hardin the following Wednesday. Patient understandably upset following diagnosis and discussion today, verbal encouragement given. Please refer for Dr. Hardin's attestation below for further details. Qualifiers: Qualified Code(s): C34.91 - Malignant neoplasm of unspecified part of right bronchus or lung - Data of Consult Patient: new to practice Consult date: 10/13/17 Requesting Physician: Dwight Hoover DO Primary Care Provider: Kris Malcolm MD - Consult Narrative Reason for consult: Non-small cell carcinoma of the right lung History of present illness: Ms. Mcdonald is a 77 year old female with past medical history significant for COPD, bullous pemphigoid, A. fib on Coumadin, hypertension, chronic edema and venous stasis of bilateral lower extremity and morbid obesity. The patient herself is a very poor historian and cannot even recall what had initially brought her to the ER. Her hospital stay initially start with the ER visit to [facility], she was evaluated at [facility] because she had a possibility of rhabdomyolysis secondary to the prolonged sitting in a chair. Patient was evaluated in the emergency room at [facility] and noted that she has not evidence of urinary tract infection. Patient underwent chest x-ray which showed right lung mass. Chest CT with contrast revealed a mass seen laterally and posteriorly in the right upper lobe measuring 3.4 x 2.9 x 2.7 cm with no evidence for metastatic disease. Patient was transferred to [facility] in [place] for further management. She underwent CT-guided biopsy of the right lung mass on 10/11/2017. Pathology report shows poorly differentiated non-small cell carcinoma with tumor necrosis, following further IHC staining, the differential diagnosis includes adenocarcinoma versus adenosquamous carcinoma. Ms. Hussein is a former smoker, she quit smoking about 16 years ago. She has COPD and requires chronic oxygen supplementation. Her functional status is somewhat poor, given she was unable to get out of her chair at home for a number of days prior to her admission. She states she was able to ambulate short distances with a walker at home prior to her admission and has been up to ambulate to the bathroom with walker since her admission. She is planned to discharge to a SNF/ECF-likely [facility]. She apparently has a sister that also resides at [facility], only other close family includes a son which lives in [place] and a daughter that lives in [place]. She denies recent weight loss or appetite changes. She reports no other family or personal history of cancer. Past Med Surg Social Fam HX - Past Medical History Medical history: atrial fibrillation, CHF, COPD, coronary artery disease, GERD, hyperlipidemia, hypertension, thyroid disease Psychiatric history: anxiety - Past Surgical History Surgical History: angioplasty/stent, herniorrhaphy, hysterectomy, other - Social History Smoking Status: Former smoker Smokeless Tobacco Status: No Alcohol use: occasionally Drug use: none - Family History Mother Living Status: Hx Family Cardiac Disorders: Yes (CHF) Medications and Allergies Albuterol Sulfate [Proair Hfa] 2 puff IH Q4H PRN 08/03/17 [History] Budesonide/Formoterol 160/4.5 [Symbicort 160/4.5] 2 puff IH BIDR 08/03/17 [ History] Calcium Citrate/Vitamin D3 [Calcium Citrate with D Tablet] 1 each PO BID [History] Levothyroxine Sodium [Levoxyl] 50 mcg PO DAILY 08/03/17 [History] Lovastatin [Mevacor] 20 mg PO HS 08/03/17 [History] Metoprolol Tartrate [Lopressor] 50 mg PO BID 08/03/17 [History] traZODone [TraZODone] 50 mg PO HS PRN #0 08/03/17 [History] Montelukast [Singulair] 10 mg PO DAILY 10/08/17 [History] Rivaroxaban [Xarelto] 20 mg PO DAILY 10/08/17 [History] Tiotropium [Spiriva] 1 puff IH DAILY 10/08/17 [History] predniSONE [PredniSONE] 3 mg PO DAILY 10/08/17 [History] 3 Allergy/AdvReac Type Severity Reaction Status Date / Time No Known Allergies Allergy Verified 07/30/17 13:44 Review of systems: As noted in history of present illness patient is a poor historian, review of systems was difficult to obtain and partially obtained by review of medical record. Constitutional: Present: fatigue, weakness. Absent: anorexia, chills, fever(s) , headache(s), weight loss Eyes: Absent: change in vision Nose, mouth and throat: Absent: dysphagia, mouth lesions Cardiovascular: Absent: chest pain, irregular heart rhythm, palpitations Respiratory: Present: cough, dyspnea on exertion Gastrointestinal: Absent: abdominal pain, hematemesis, hematochezia, melena, nausea, vomiting Genitourinary: Absent: dysuria Musculoskeletal: Present: muscle weakness Integumentary: Present: as per HPI Neurological: Absent: focal weakness, frequent falls Hematologic/Lymphatic: Present: as per HPI Oncology - Exam - Constitutional Vitals: Temp Pulse Resp BP Pulse Ox 97.3 F L 78 20 105/68 98 10/13/17 09:49 10/13/17 09:49 10/13/17 10:53 10/13/17 09:49 10/13/17 10:53 General appearance: cooperative, morbidly obese, no acute distress, no febrile - Head Head exam: Present: atraumatic - ENT ENT exam: Present: mucous membranes moist - Respiratory Respiratory exam: Present: CTAB. Absent: respiratory distress - Cardiovascular Cardiovascular exam: Present: RRR, +S1, +S2 - GI/Abdominal GI/Abdominal exam: Present: normal bowel sounds, soft. Absent: tenderness Additional comments: Palpation difficult due to body habitus - Extremities Exam Additional comments: Bilateral lower extremity edema which patient states is unchanged from baseline along with bilateral lower extremity advanced venous stasis dermatitis - Neurological Exam Neurological exam: Present: alert, oriented X3, no focal deficits, strengths equal and symetr throughout - Psychiatric Psychiatric exam: Present: depressed, flat affect - Skin Skin exam: Present: normal color, warm Oncology - Results Labs: Short CBC 10/13/17 Range/Units 05:49 WBC 6.0 (4.3-11.1) K/mcL Hgb 10.5 L (11.5-15.4) g/dL Hct 35.1 L (35.3-44.9) % Plt Count 268 (140-400) K/mcL BMP 10/13/17 05:49 Sodium 137 Potassium 3.8 Chloride 100 Carbon Dioxide 32 H BUN 12 Creatinine 0.78 Glucose 107 H Calcium 8.5 L Consult Discharge Plan - Plan Referrals: Kris Malcolm MD [Primary Care Provider] - <Darvin Hardin - Last Filed: 10/14/17 08:24> Date of Encounter: 10/13/17 - Data of Consult Requesting Physician: Dwight Hoover DO Primary Care Provider: Kris Malcolm MD - Consult Narrative History of present illness: Ms. Mcdonald is a 77 year old female Oncology - Exam - Constitutional Vitals: Temp Pulse Resp BP Pulse Ox 97.5 F L 64 18 120/83 97 10/14/17 07:36 10/14/17 07:36 10/14/17 07:36 10/14/17 07:36 10/14/17 07:36 - Attending Attestation seen and examined patient and agree with assessment and plan. she has new lung mass. Presented with weakness and found to have UTI. Mass was incidentaly identified and was bxd and shows adenocarcinoma vs. adenosquamous carcinoma. She will need PET scan and probably MRI brain. If disease is limited to the thorax, given her comorbidities, she could benefit from SBRT.
--- NOTE | 2017-10-13 19:20 | Internal Med Progress Note ---
Date of Encounter: 10/13/17 Time of Encounter: 10:00 - Assessment and plan (1) Non-small cell lung cancer (NSCLC) Current Visit: Yes Status: Chronic Assessment and plan: Discussed with patient. Oncology to see today. With her permission I did contact her son to inform him of the diagnosis. If no further workup or treatment planned will anticipate d/c to SNF. Qualifiers: Laterality: right Qualified Code(s): C34.91 - Malignant neoplasm of unspecified part of right bronchus or lung (2) Chronic respiratory failure with hypoxia Current Visit: Yes Status: Chronic Assessment and plan: Continue oxygen as ordered. (3) Pneumothorax after biopsy Current Visit: Yes Status: Resolved Assessment and plan: Resolved on CXR. (4) Venous stasis ulcer of right lower extremity Current Visit: No Status: Acute Assessment and plan: Bilateral loweer ext venous stenosis skin changes. Continue supportive care. (5) Atrial fibrillation Current Visit: No Status: Chronic Assessment and plan: HR is controlled Resume Xarelto Qualifiers: Atrial fibrillation type: chronic Qualified Code(s): I48.2 - Chronic atrial fibrillation (6) Hypertension Current Visit: No Status: Chronic Assessment and plan: Chronic issue Qualifiers: Hypertension type: essential hypertension Qualified Code(s): I10 - Essential (primary) hypertension (7) Bullous pemphigoid Current Visit: No Status: Chronic Assessment and plan: Chronic issue (8) Morbid obesity with BMI of 40.0-44.9, adult Current Visit: Yes Status: Chronic Assessment and plan: Chronic issue - Subjective Interval history: Ms Mcdonald is currently admitted for respiratory issues and lung mass. She is s/p biopsy. She remains moderate to high risk due to potential for worsening clinical status. Ms Mcdonald feels very tired. Biopsy is positive for NSSLC. She is sad about diagnosis. No fever or new issues at this time. - Constitutional Vitals: Temp Pulse Resp BP Pulse Ox 98.1 F 77 20 151/85 98 10/13/17 15:00 10/13/17 15:00 10/13/17 16:16 10/13/17 15:00 10/13/17 16:16 General appearance: Present: A&O X 3, morbidly obese, pleasant, answers questions appropriately - Head Head exam: Present: normocephalic - Eye Eye exam: Present: conjuntiva pink - ENT ENT exam: Present: mucous membranes moist - Respiratory Respiratory exam: Present: prolonged expiratory phase, rhonchi - Cardiovascular Cardiovascular exam: Present: irregular rhythm, RRR. Absent: tachycardia - GI/Abdominal GI/Abdominal exam: Present: soft. Absent: tenderness - Extremities Exam Extremities exam: Present: warm. Absent: tenderness - Neurological Exam Neurological exam: Present: alert, oriented X3, no focal deficits - Skin Skin exam: Present: dry, warm Internal Medicine: Result - Labs CBC & Chem 7: 10/13/17 05:49 10/13/17 05:49 Labs: Short CBC 10/13/17 Range/Units 05:49 WBC 6.0 (4.3-11.1) K/mcL Hgb 10.5 L (11.5-15.4) g/dL Hct 35.1 L (35.3-44.9) % Plt Count 268 (140-400) K/mcL BMP 10/13/17 05:49 Sodium 137 Potassium 3.8 Chloride 100 Carbon Dioxide 32 H BUN 12 Creatinine 0.78 Glucose 107 H Calcium 8.5 L - ABG Interpretation ABG results: PT/INR, D-dimer PT 15.2 Seconds (9.4-12.1) H 10/13/17 05:49 - Impressions Impressions Chest X-Ray 10/13/17 07:00 IMPRESSION: The tiny apical pneumothorax seen on the previous examination is no longer demonstrated. Chest otherwise appear similar. D/ / Pavan Sharp MD / Pavan Sharp MD Interpreting Provider: Pavan Sharp MD Consult Discharge Plan - Plan Referrals: Kris Malcolm MD [Primary Care Provider] -
[2017-10-13] MEDS: *HR* Acetaminophen w/Cod 300-30 mg 1 TAB TABLET PO PRN (22:02)
[2017-10-14] MEDS: Ipratropium/Albuterol Neb 3 ML IH SCH ×2 (03:34→11:25)
[2017-10-14] MEDS: *HR* Acetaminophen w/Cod 300-30 mg 1 TAB TABLET PO PRN (04:09)
[2017-10-14 05:02] LABS: INR 1.5; Prothrombin Time 16.5 Seconds (9.4-12.1)
[2017-10-14] MEDS: Magnesium Oxide 400 MG TABLET PO SCH (08:15)
[2017-10-14] MEDS: predniSONE 1 MG TABLET PO SCH (08:16)
[2017-10-14] MEDS: Torsemide 20 MG TABLET PO SCH (08:16)
[2017-10-14] MEDS: Famotidine 20 MG TABLET PO SCH (08:16)
[2017-10-14] MEDS: VITAMIN D3 PO SCH (08:16)
[2017-10-14] MEDS: [UNRECOGNIZED DRUG - OTHER] PO SCH (08:16)
[2017-10-14] MEDS: CALCIUM CITRATE PO SCH (08:16)
[2017-10-14] MEDS: Ammonium Lactate 30 APPL/225 GM BOTTLE TP SCH (08:17)
[2017-10-14] MEDS: cefTRIAXone 1,000 MG in Water for inj. (sterile) 20 ML 10 ML IVP SCH (08:18)
--- NOTE | 2017-10-14 10:09 | Discharge Summary ---
- NOTES TO OUTPATIENT PROVIDER Notes to Outpatient Provider: Pt is new diagnosis of lung cancer. To follow up with oncology for further plans. Orders not resulted at time of discharge: Pending orders 10/08/17 08:24 PLASMA [BBK] Stat Type and Screen [BBK] Stat 10/14/17 09:42 MR head/brain wo/w con [MR] Stat Date of Encounter: 10/14/17 Time of Encounter: 09:30 - Discharge Diagnosis (1) UTI (urinary tract infection) Priority: Primary Status: Resolved Qualifiers: Urinary tract infection type: acute cystitis Hematuria presence: with hematuria Qualified Code(s): N30.01 - Acute cystitis with hematuria (2) Non-small cell lung cancer (NSCLC) Priority: Primary Status: Chronic Qualifiers: Laterality: right Qualified Code(s): C34.91 - Malignant neoplasm of unspecified part of right bronchus or lung (3) Chronic respiratory failure with hypoxia Priority: Secondary Status: Chronic (4) Pneumothorax after biopsy Priority: Secondary Status: Resolved (5) Venous stasis ulcer of right lower extremity Priority: Secondary Status: Chronic (6) Atrial fibrillation Priority: Secondary Status: Chronic Qualifiers: Atrial fibrillation type: chronic Qualified Code(s): I48.2 - Chronic atrial fibrillation (7) Hypertension Priority: Secondary Status: Chronic Qualifiers: Hypertension type: essential hypertension Qualified Code(s): I10 - Essential (primary) hypertension (8) Bullous pemphigoid Priority: Secondary Status: Chronic (9) Morbid obesity with BMI of 40.0-44.9, adult Priority: Secondary Status: Chronic Hospital course: Ms. Mcdonald is a 77 year old female with hx of COPD evaluated at [place] ED due to concern for rhabdomyolysis. During evaluation she was found to have R lung mass and transferred here for further evaluation. Ms Mcdonald was admitted to med surg. She was seen by pulmonary service and biopsy recommended. Her INR was elevated and she was given FFP with improvement. She underwent biopsy on 10/11 and was found to have small apical pneumothorax post procedure. On 10/12 she was noted to have more chest congestion. Medications were adjusted. She was also being treated for UTI. On 10/13 biopsy returned with NSCLC. She was informed and oncology evaluated the patient. Further work up and follow up as outpatient. Today she is at baseline breathing. She is afebrile. She is tearful about diagnosis but is willing to pursue current plan. I have discussed all this with her son and sister with her permission. She is to have MRI today and then discharge to SNF. Discharge discussed with: patient, family, nurse - Time Spent with Patient Total time spent providing and/or coordinating discharge services: 44min - Discharge Medications Prescriptions: Acetaminophen w/Cod 300-30 mg [Tylenol w/Codeine #3] 2 tab PO Q4HR PRN 2 Days # 10 tablet PRN Reason: Mild Pain GuaiFENesin/Codeine [ROBITUSSIN w/CODEINE] 10 ml PO Q6HR PRN 1 Days #50 ml PRN Reason: Cough Home Medications: Albuterol Sulfate [Proair Hfa] 2 puff IH Q4H PRN 08/03/17 [History] Budesonide/Formoterol 160/4.5 [Symbicort 160/4.5] 2 puff IH BIDR 08/03/17 [ History] Calcium Citrate/Vitamin D3 [Calcium Citrate with D Tablet] 1 each PO BID [History] Levothyroxine Sodium [Levoxyl] 50 mcg PO DAILY 08/03/17 [History] Metoprolol Tartrate [Lopressor] 50 mg PO BID 08/03/17 [History] traZODone [TraZODone] 50 mg PO HS PRN #0 08/03/17 [History] Montelukast [Singulair] 10 mg PO DAILY 10/08/17 [History] Tiotropium [Spiriva] 1 puff IH DAILY 10/08/17 [History] predniSONE [PredniSONE] 3 mg PO DAILY 10/08/17 [History] Acetaminophen w/Cod 300-30 mg [Tylenol w/Codeine #3] 2 tab PO Q4HR PRN 2 Days # 10 tablet 10/14/17 [Rx] Ammonium Lactate [Amlactin] 1 appl TP DAILY bottle 10/14/17 [Rx] Famotidine [Pepcid] 10 mg PO BID tablet 10/14/17 [Rx] GuaiFENesin ER [Mucinex] 600 mg PO BID PRN tbbp.12hr 10/14/17 [Rx] GuaiFENesin/Codeine [ROBITUSSIN w/CODEINE] 10 ml PO Q6HR PRN 1 Days #50 ml 03/08 /18 [Rx] Ipratropium/Albuterol Neb [Duoneb] 3 ml IH [id number] inhsol 10/14/17 [Rx] Magnesium Oxide [Mag-Ox] 400 mg PO BID tablet 10/14/17 [Rx] Polyethylene Glycol 3350 [MiraLAX] 17 gm PO DAILY powd.pack 10/14/17 [Rx] Potassium Chloride 10 meq PO BID tab.er.prt 10/14/17 [Rx] Rivaroxaban [Xarelto] 15 mg PO 1700 tablet 10/14/17 [Rx] Simvastatin [Zocor] 10 mg PO HS tablet 10/14/17 [Rx] Torsemide [Demadex] 20 mg PO DAILY tablet 10/14/17 [Rx] Allergies/Adverse Reactions: 3 Allergy/AdvReac Type Severity Reaction Status Date / Time No Known Allergies Allergy Verified 07/30/17 13:44 Date of admission: 10/07/17 23:55 Primary care physician: Kris Malcolm MD Consults: 10/07/17 18:56 Consult to Service Counselor [CONS] Routine Reason for SW Consult: discharge planning 10/07/17 21:50 Consult to Pulmonology [CONS] Routine Consulting Provider: Pulm Crit [facility] Sleep Sandy Reason for Consult: Right sided lung mass. Patient is NPO from midnight. Call Completed: No 10/08/17 08:01 Consult to Interventional Radiology [CONS] Routine Consulting Provider: Radiology Interventional Cols Reason for Consult: lung mass biopsy Time Notified: 08:03 Call Completed: Yes 10/12/17 10:08 OT [Consult to Occupational Therapy] [CONS] Routine Comment: Evaluate, develop and implement POC Reason for Consult: Weakness. Discharge planning. PT [Consult to Physical Therapy] [CONS] Routine Comment: Evaluate, develop and implement POC Reason for Consult: Weakness. Discharge planning 10/13/17 10:17 Consult to Oncology Hematology [CONS] Routine Consulting Provider: Myrna Card Reason for Consult: New NSCLC Time Notified: 10:00 Call Completed: Yes Discharging clinician: Dwight Hoover Anticipated date of discharge: 10/14/17 - Constitutional Vitals: Temp Pulse Resp BP Pulse Ox 97.5 F L 64 18 120/83 97 10/14/17 07:36 10/14/17 07:36 10/14/17 07:36 10/14/17 07:36 10/14/17 07:36 General appearance: Present: A&O X 3, morbidly obese, pleasant, answers questions appropriately - Head Head exam: Present: atraumatic, normocephalic - Eye Eye exam: Present: EOMI, conjuntiva pink - ENT ENT exam: Present: mucous membranes moist - Respiratory Respiratory exam: Present: decreased breath sounds. Absent: rales, rhonchi, wheezes - Cardiovascular Cardiovascular exam: Present: RRR. Absent: tachycardia - GI/Abdominal GI/Abdominal exam: Present: soft. Absent: tenderness - Extremities Exam Extremities exam: Present: warm. Absent: tenderness Additional comments: Venous stasis changes noted. - Neurological Exam Neurological exam: Present: alert, oriented X3 - Psychiatric Additional comments: Tearful - Patient Status Disposition: Transfer SNF Condition: Fair Functional capacity at discharge: uses cane/walker Overall status at discharge: patient is progressing back to baseline - Ambulatory Orders Ambulatory Orders: PET CT whole body DX/initial [PE] Time Frame: 1 Week, Facility: [facility], Location: Radiology - Discharge Instructions Follow Up With: Kris Malcolm MD [Primary Care Provider] - 11/02/17 2:30 pm - Diet and Activity Activity: as per physical therapy, increase activity as tolerated Diet: advance to your usual diet
[2017-10-14] MEDS: Tiotropium 18 MCG inhalation IH SCH (10:20)
--- NOTE | 2017-10-14 10:23 | Physician Discharge Referral ---
ExtendedCare Referral Info Provider in Charge after Transfer: PCP Institutional Level of Care: Skilled - Diagnosis (1) UTI (urinary tract infection) Priority: Primary Status: Resolved (2) Non-small cell lung cancer (NSCLC) Priority: Primary Status: Chronic (3) Chronic respiratory failure with hypoxia Priority: Secondary Status: Chronic (4) Pneumothorax after biopsy Priority: Secondary Status: Resolved (5) Venous stasis ulcer of right lower extremity Priority: Secondary Status: Chronic (6) Atrial fibrillation Priority: Secondary Status: Chronic (7) Hypertension Priority: Secondary Status: Chronic (8) Bullous pemphigoid Priority: Secondary Status: Chronic (9) Morbid obesity with BMI of 40.0-44.9, adult Priority: Secondary Status: Chronic Expected Duration of Placement: Less than 30 days Prognosis: Fair Aware of Diagnosis: Patient, Family Aware of Prognosis: Patient, Family - Transfer Medications Prescriptions: Acetaminophen w/Cod 300-30 mg [Tylenol w/Codeine #3] 2 tab PO Q4HR PRN 2 Days # 10 tablet PRN Reason: Mild Pain GuaiFENesin/Codeine [ROBITUSSIN w/CODEINE] 10 ml PO Q6HR PRN 1 Days #50 ml PRN Reason: Cough Home Medications: Albuterol Sulfate [Proair Hfa] 2 puff IH Q4H PRN 08/03/17 [History] Budesonide/Formoterol 160/4.5 [Symbicort 160/4.5] 2 puff IH BIDR 08/03/17 [ History] Calcium Citrate/Vitamin D3 [Calcium Citrate with D Tablet] 1 each PO BID [History] Levothyroxine Sodium [Levoxyl] 50 mcg PO DAILY 08/03/17 [History] Metoprolol Tartrate [Lopressor] 50 mg PO BID 08/03/17 [History] traZODone [TraZODone] 50 mg PO HS PRN #0 08/03/17 [History] Montelukast [Singulair] 10 mg PO DAILY 10/08/17 [History] Tiotropium [Spiriva] 1 puff IH DAILY 10/08/17 [History] predniSONE [PredniSONE] 3 mg PO DAILY 10/08/17 [History] Acetaminophen w/Cod 300-30 mg [Tylenol w/Codeine #3] 2 tab PO Q4HR PRN 2 Days # 10 tablet 10/14/17 [Rx] Ammonium Lactate [Amlactin] 1 appl TP DAILY bottle 10/14/17 [Rx] Famotidine [Pepcid] 10 mg PO BID tablet 10/14/17 [Rx] GuaiFENesin ER [Mucinex] 600 mg PO BID PRN tbbp.12hr 10/14/17 [Rx] GuaiFENesin/Codeine [ROBITUSSIN w/CODEINE] 10 ml PO Q6HR PRN 1 Days #50 ml 10/14 [Rx] Ipratropium/Albuterol Neb [Duoneb] 3 ml IH [id number] inhsol 10/14/17 [Rx] Magnesium Oxide [Mag-Ox] 400 mg PO BID tablet 10/14/17 [Rx] Polyethylene Glycol 3350 [MiraLAX] 17 gm PO DAILY powd.pack 10/14/17 [Rx] Potassium Chloride 10 meq PO BID tab.er.prt 10/14/17 [Rx] Rivaroxaban [Xarelto] 15 mg PO 1700 tablet 10/14/17 [Rx] Simvastatin [Zocor] 10 mg PO HS tablet 10/14/17 [Rx] Torsemide [Demadex] 20 mg PO DAILY tablet 10/14/17 [Rx] Allergies/Adverse Reactions: 3 Allergy/AdvReac Type Severity Reaction Status Date / Time No Known Allergies Allergy Verified 07/30/17 13:44 - Respiratory Orders Oxygen / L per min (Maintain oxygen saturation greater than 88%) Smoking Cessation: Smoking cessation has been advised. For more information, call the [place] Tobacco Quit Line at 8-630-DUZS-NOW. - Lab Orders Lab Orders: 2 Step Mantoux Test per State regulation - Ancillary Orders May use pressure relief devices daily prn, May consult with Dentist, Supervisor Channel Process, Invoice Checker PRN - Advance Directives Code Status: Full Code - History and Physical History/Physical reviewed & approved w/add comments: No significant changes - Mobility Orders Chair, Ambulate - Rehabiliation Orders Rehab Potential: Fair Rehab Orders: Evaluation for Physical Therapy, Evaluation for Occupational Therapy - Treatments Skin tear care topically daily PRN per policy, May check for fecal impaction rectally daily PRN, Fleet enema rectally every other day PRN cleansing purposes - Diet Orders Cardiac CERTIFICATION: I certify that the transfer of the above named patient to an Extended Care Facility is necessary for the continuing treatment of the diagnosis listed. The above information is true and accurate reflection of patient's current condition. Confidential - Redisclosure prohibited without a patient's written consent.
[2017-10-14 10:41] VITALS: BP 121/77
[2017-10-14] MEDS: Budesonide/Formoterol 160/4.5 MDI IH SCH (11:25)
--- NOTE | 2017-10-14 15:35 | Oncology Inp Progress Note ---
Date of Encounter: 10/14/17 Time of Encounter: 15:00 (1) Non-small cell lung cancer (NSCLC) Status: Chronic Assessment and plan: Pathologic findings consistent with patient of poorly differentiated non-small cell carcinoma of the right lung of either adenocarcinoma versus adenosquamous carcinoma. MRI of the brain without/with contrast negative for evidence of brain parenchymal metastasis. PET scan has been ordered, however, cannot be approved as patient is now going to short term rehab facility (versus independent living). If she continues to have only local disease to thorax, she may be able to benefit from SBRT. Further treatment options to be discussed on outpatient basis pending further staging workup and continued monitoring of her functional status. I encouraged participation with therapy and continued activity as tolerated. She appears in better spirits today. She was given my card to call with any questions or concerns. She is planned to follow up with Dr. Hardin in about 1 1/2 weeks, however, now that PET will not be obtained next week may obtain further imaging with CT scan and arrange potential follow up with radiation, this is to be discussed further. Will contact her facility if plans need to be changed. Qualifiers: Laterality: right Qualified Code(s): C34.91 - Malignant neoplasm of unspecified part of right bronchus or lung Oncology: Subj Interval history: Ms. Mcdonald is resting comfortably in bed. She is planned for discharge to [facility] soon. She denies pain, SOB or chest pain. Patient and patients primary team have been in contact with patients family regarding her recent diagnosis. - Constitutional Vitals: Vital Signs Temp Pulse Resp BP Pulse Ox 10/14/17 11:28 18 97 10/14/17 10:00 97.3 F L 74 18 121/77 97 10/14/17 08:15 97 10/14/17 07:36 97.5 F L 64 18 120/83 97 10/14/17 03:35 97.4 F L 75 16 115/65 95 10/14/17 00:03 98.3 F 76 19 128/78 97 10/13/17 22:46 16 94 10/13/17 19:00 97.8 F 75 20 132/75 96 10/13/17 16:16 20 98 Intake and Output 10/13/17 10/14/17 10/14/17 23:59 07:59 15:59 Intake Total 320 / 320 0 / 0 Output Total 250 / 250 350 / 350 Balance 320 / 320 -250 / -250 -350 / -350 Intake: Oral 320 / 320 0 / 0 Output: Urine 250 / 250 350 / 350 Other: Meal Dinner Breakfast Percent of Meal Consumed 35% 10% # Voids 1 Weight 109.9 kg Patient Weight 10/14/17 23:59 Weight 109.9 kg General appearance: morbidly obese, no acute distress, no febrile - Head Head exam: Present: atraumatic - Respiratory Respiratory exam: Present: CTAB. Absent: respiratory distress - Cardiovascular Cardiovascular exam: Present: RRR, +S1, +S2 - Extremities Exam Extremities exam: Absent: calf tenderness Additional comments: Edema to BLE with chronic venous stasis dermatitis skin changes - Neurological Exam Neurological exam: Present: alert, oriented X3, no focal deficits, strengths equal and symetr throughout - Psychiatric Psychiatric exam: Present: normal affect, normal mood - Skin Skin exam: Present: normal color, warm Oncology: Obj Data - Labs CBC & Chem 7: 10/13/17 05:49 10/13/17 05:49 Labs: Laboratory Results - last 24 hr 10/14/17 04:09 PT 16.5 H INR 1.5 - Impressions Impressions Brain MRI 10/14/17 09:42 IMPRESSION: Cerebral atrophy. Chronic small vessel ischemic changes. No acute brain parenchymal abnormality. Motion artifact degrades postcontrast images. No obvious brain parenchymal metastasis at this time. Mucoperiosteal thickening of the right maxillary sinus. Mild left mastoid air cell disease. D/ / 10/14/2017 12:43:45 Demetrice Pace MD / loi Interpreting Provider: Demetrice Pace MD - ABG Interpretation ABG results: PT/INR, D-dimer PT 16.5 Seconds (9.4-12.1) H 10/14/17 04:09 Consult Discharge Plan - Plan Referrals: Darvin Hardin [Non-Partnered Physician] - 10/25/17 10:20 am Kris Malcolm MD [Primary Care Provider] - 11/02/17 2:30 pm Prescriptions: Acetaminophen w/Cod 300-30 mg [Tylenol w/Codeine #3] 2 tab PO Q4HR PRN 2 Days # 10 tablet PRN Reason: Mild Pain GuaiFENesin/Codeine [ROBITUSSIN w/CODEINE] 10 ml PO Q6HR PRN 1 Days #50 ml PRN Reason: Cough
[2017-10-14] MEDS ORDERED: *HR* Rivaroxaban 15 MG TABLET PO SCH (17:00)
== END 2017-10-14 15:02 | DRG 181 ==
LOC: INTOOBSV 17:51 → SUATTDRO 17:51 → 3ANU 17:51 → 3NENU 23:23 → SUATTDRO 23:55 → 3ANU 10-14 00:28
PROVIDERS: ADMIT Internal Medicine; ATTEND Internal Medicine